=== PATIENT | male | born 1965 | race Two or more races ===

== ENCOUNTER 2020-07-01 16:50 | Outpatient (CLI) | payer OTHER | END 2020-07-01 16:58 | disposition home or self-care (01) | LOC: LAB 16:50 | PROVIDERS: ATTEND Internal Medicine Geriatric Medicine | DX: D69.6 Thrombocytopenia, unspecified (principal); D68.8 Other specified coagulation defects ==

== ENCOUNTER 2020-07-05 10:21 | Inpatient (IN) | payer OTHER ==
[~2020-07-05] VITALS: Ht 185.4 cm; Wt 102.1 kg
[2020-07-05] MEDS ORDERED: METFORMIN HCL500 M3 PO (10:47)
[2020-07-05] MEDS ORDERED: COZAAR50 MG PO (10:47)
[2020-07-05] MEDS ORDERED: NORVASC5 MG PO (10:47)
== END 2020-07-07 13:14 | disposition home or self-care (01) | DRG 331 ==
LOC: O/R 07-06 08:38 → SURH 07-06 08:38
PROVIDERS: ADMIT Colon & Rectal Surgery; ATTEND Colon & Rectal Surgery
PROC: 0DBH4ZZ Excision of Cecum, Percutaneous Endoscopic Approach (ICD-10-PCS; principal; 2020-07-06 09:15)
DX: K63.89 Other specified diseases of intestine (principal); D12.1 Benign neoplasm of appendix